=== PATIENT | male | born 1995 | race Caucasian/White ===

== ENCOUNTER 2025-08-18 06:40 | Day surgery (SDC) | payer BC ==
[2025-08-16 12:48] VITALS: BMI 30.1
[2025-08-18] MEDS ORDERED: Bacitracin 1 PK ONE (06:58)
[2025-08-18] MEDS ORDERED: Lidocaine 1% w/Epinephrine 1:200K 30 ML VIAL ONE (06:58)
[2025-08-18] MEDS ORDERED: PROPOFOL 20 ML ONE (07:09)
[2025-08-18] MEDS ORDERED: Lidocaine 1% PF 5 ML VIAL ONE (07:10)
[2025-08-18] MEDS ORDERED: Rocuronium Bromide 10 MG/ML (10ML VIAL) ONE (07:10)
[2025-08-18] MEDS ORDERED: AFRIN NASAL MIST 15 ML BOT ONE (08:06)
[2025-08-18] MEDS ORDERED: Ondansetron PF 4 MG/2 ML Vial ONE (08:40)
[2025-08-18] MEDS ORDERED: SUGAMMADEX SODIUM 200 MG/2 ML VIAL ONE (08:41)
[2025-08-18] MEDS ORDERED: Oxymetazoline HCl 0.05% (15 ML) ONE (08:48)
[2025-08-18] MEDS ORDERED: HYDROcodone/Acetaminophen 5/325 mg Tablet ONE (11:04)
== END 2025-08-18 11:15 | disposition home or self-care (01) ==
LOC: CSHSDC 06:40
PROVIDERS: ATTEND Otolaryngology Plastic Surgery within the Head & Neck
PROC: 099S8ZZ Drainage of Right Frontal Sinus, Via Natural or Artificial Opening Endoscopic (ICD-10-PCS; principal; 2025-08-18)
PROC: 09TV8ZZ Resection of Left Ethmoid Sinus, Via Natural or Artificial Opening Endoscopic (ICD-10-PCS; principal; 2025-08-18)
PROC: 095L8ZZ Destruction of Nasal Turbinate, Via Natural or Artificial Opening Endoscopic (ICD-10-PCS; principal; 2025-08-18)
PROC: 099X8ZZ Drainage of Left Sphenoid Sinus, Via Natural or Artificial Opening Endoscopic (ICD-10-PCS; principal; 2025-08-18)
PROC: 099T8ZZ Drainage of Left Frontal Sinus, Via Natural or Artificial Opening Endoscopic (ICD-10-PCS; principal; 2025-08-18)
PROC: 09SM4ZZ Reposition Nasal Septum, Percutaneous Endoscopic Approach (ICD-10-PCS; principal; 2025-08-18)
PROC: 099W8ZZ Drainage of Right Sphenoid Sinus, Via Natural or Artificial Opening Endoscopic (ICD-10-PCS; principal; 2025-08-18)
PROC: 09TU8ZZ Resection of Right Ethmoid Sinus, Via Natural or Artificial Opening Endoscopic (ICD-10-PCS; principal; 2025-08-18)
PROC: 099R8ZZ Drainage of Left Maxillary Sinus, Via Natural or Artificial Opening Endoscopic (ICD-10-PCS; principal; 2025-08-18)
PROC: 099Q8ZZ Drainage of Right Maxillary Sinus, Via Natural or Artificial Opening Endoscopic (ICD-10-PCS; principal; 2025-08-18)
DX: J34.2 Deviated nasal septum (principal); J32.4 Chronic pansinusitis; J34.3 Hypertrophy of nasal turbinates; H91.90 Unspecified hearing loss, unspecified ear; F17.290 Nicotine dependence, other tobacco product, uncomplicated
CPT/HCPCS: J1100; J2250; J2704